=== PATIENT | female | born 1945 | race Caucasian/White ===

== ENCOUNTER 2017-05-15 11:45 | Emergency (ER) | payer MEDICARE ==
[~2017-05-15] VITALS: Ht 165.1 cm; Wt 80.0 kg
[~2017-05-15 11:45] MED LIST: ACET325 PO; AMLO5TAB96 PO; CALTTAB2 PO; ERGO50000 PO; FLON0.053; FLUTI110I INH; LISI40TA PO; SIMV20TA PO; VENTAER INH
[2017-05-15 11:50] VITALS: BP 184/78; PULSE 82; RESP 12; TEMP 98.9; O2SAT 98
[2017-05-15 12:16] VITALS: BP 159/68; PULSE 70; RESP 14; O2SAT 98
[2017-05-15] MEDS ORDERED: FLUT50SP EACH NARE (12:27)
[2017-05-15] MEDS ORDERED: CARB50TA3 PO (12:27)
[2017-05-15] MEDS ORDERED: VENTAER INH (12:27)
[2017-05-15] MEDS ORDERED: AMLO5TAB2 PO (12:27)
[2017-05-15] MEDS ORDERED: CALTCHW5 PO (12:27)
[2017-05-15] MEDS ORDERED: VITA500T4 PO (12:27)
[2017-05-15] MEDS ORDERED: MAPA325T PO (12:27)
[2017-05-15] MEDS ORDERED: FLUTI110I INH (12:27)
[2017-05-15] MEDS ORDERED: VITA1000 PO (12:27)
[2017-05-15] MEDS ORDERED: LISI40TA PO (12:27)
[2017-05-15] MEDS ORDERED: SIMV40TA PO (12:27)
[2017-05-15] MEDS ORDERED: ENTA1TAB PO (12:27)
--- NOTE | 2017-05-15 12:28 | PD ---
HPI Chief Complaint: GI Complaint Time Seen by Provider: 11:54 Travel History International Travel<30 days: No Contact w/Intl Traveler<30days: No Traveled to known affect area: No History of Present Illness HPI 71-year-old female with PMH of HTN, emphysema, breast CA, recent diagnosis of Parkinson's presents to the ED for evaluation of 3 week history of dizziness, nausea, loose bowel movements. The patient denies headaches, vision changes, chest pain, palpitations, shortness of breath, cough, abdominal pain, dysuria, urinary urgency, unilateral weakness, facial droop. She denies melena, hematochezia, BRBPR. She's never had a colonoscopy. She states that her nausea worsened after she began to take medications for Parkinson's. She is followed by [facility]. [facility] Past Medical History Arthritis: Yes Asthma: Yes Blood Disorders: No Cancer: Yes (RIGHT BREAST) Cardiovascular Problems: Yes Chemotherapy: No Diabetes: No Diminished Hearing: No Endocrine: No Glaucoma: No Genitourinary: No Hepatitis: No Hiatal Hernia: No Hypertension: Yes Immune Disorder: No Medical other: Yes (OSTEOARTHRITIS LEFT HIP) Musculoskeletal: Yes Neurologic: No Parkinson's Disease: Yes Reproductive: No Respiratory: Yes Radiation Therapy: No Thyroid Disease: No ?: Not Menopausal: Yes Past Surgical History Joint Replacement: Yes (LEFT TOTAL HIP) Mastectomy: Yes (BILATERAL) Oral Surgery: Yes (T & A) Pacemaker: No Tonsillectomy: Yes Social History Alcohol Use: No Tobacco Use: No Substance Use: No Allergies-Medications (Allergen,Severity, Reaction): Coded Allergies: No Known Allergies (Unverified Adverse Reaction, Unknown, 05/15/17) Uncoded Allergies: BP MED WITH DIURETIC (Adverse Reaction, Severe, LEG CRAMPS, 04/25/09) DAUGHTER THINKS IT MAY BE HCTZ Reported Meds & Prescriptions Reported Meds & Active Scripts Active Zyrtec (Cetirizine HCl) 10 Mg Capsule 10 Mg PO DAILY Zofran Odt (Ondansetron Odt) 4 Mg Tab 4 Mg SL Q12HR PRN Macrobid (Nitrofurantoin Monoh/Nitrofur Macro) 100 Mg Cap 100 Mg PO BID 7 Days Reported Vitamin D-1000 (Cholecalciferol) 1,000 Unit Tab 50,000 Units PO 2XWEEK Vitamin B-12 (Cyanocobalamin) 500 Mcg Tab 1,000 Mcg PO DAILY Ventolin Hfa 18 GM Inh (Albuterol Sulfate) 90 Mcg/Act Aer 2 Puff INH Q6H PRN Simvastatin 40 Mg Tab 40 Mg PO HS Lisinopril 40 Mg Tab 40 Mg PO DAILY Fluticasone Nasal [place] 50 Mcg/Act Naspr 50 Mcg EACH NARE BID 50 mcg/spray Flovent Hfa 12 GM Inh (Fluticasone Propionate) 110 Mcg/Act Inh 2 Puff INH BID Entacapone 200 Mg Tab 200 Mg PO TID administered concomitantly with each levodopa/carbidopa dose Carbidopa-Levodopa ER 50-200 Mg Tab 1 Tab PO TID Caltrate 600+D Chew (Calcium Carbonate-Vitamin D Chew) 600-400 Mg-Unit Chew 1 Tab PO DIRECTED Amlodipine (Amlodipine Besylate) 5 Mg Tab 5 Mg PO DAILY Mapap (Acetaminophen) 325 Mg Tab 325 Mg PO Q4-6H PRN Review of Systems Except as stated in HPI: all other systems reviewed are Neg Physical Exam Narrative GENERAL: Well-nourished, well-developed white female in no acute distress. SKIN: Focused skin assessment warm/dry. HEAD: Normocephalic. EYES: No scleral icterus. No injection or drainage. NECK: Supple, trachea midline. No JVD or lymphadenopathy. CARDIOVASCULAR: Regular rate and rhythm without murmurs, gallops, or rubs. RESPIRATORY: Breath sounds clear and equal bilaterally. No accessory muscle use. GASTROINTESTINAL: Abdomen soft, non-tender, nondistended. Active bowel sounds. MUSCULOSKELETAL: No cyanosis, or edema. NEUROLOGICAL: Awake and alert. Cranial nerves II through XII intact. Motor and sensory grossly within normal limits. Five out of 5 muscle strength in all muscle groups. Normal speech. BACK: Nontender without obvious deformity. No CVA tenderness. Data Data Last Documented VS Vital Signs Date Time Temp Pulse Resp B/P (MAP) Pulse Ox O2 Delivery O2 Flow Rate FiO2 05/15/17 14:54 (92) 05/15/17 13:42 65 18 67 18 76 18 05/15/17 12:28 Room Air 05/15/17 12:16 98 05/15/17 11:50 98.9 Orders Orders Electrocardiogram (05/15/17 12:22) Complete Blood Count With Diff (05/15/17 12:22) Comprehensive Metabolic Panel (05/15/17 12:22) Magnesium (Mg) (05/15/17 12:22) B-Type Natriuretic Peptide (05/15/17 12:22) Ckmb (Isoenzyme) Profile (05/15/17 12:22) Troponin I (05/15/17 12:22) Act Partial Throm Time (Ptt) (05/15/17 12:22) Prothrombin Time / Inr (Pt) (05/15/17 12:22) Urinalysis - C+S If Indicated (05/15/17 12:22) Chest, Single Ap (05/15/17 12:22) Ct Brain W/O Iv Contrast(Rout) (05/15/17 12:22) Ecg Monitoring (05/15/17 12:22) Iv Access Insert/Monitor (05/15/17 12:22) Oximetry (05/15/17 12:22) Sodium Chloride 0.9% Flush (Ns Flush) (05/15/17 12:30) Orthostatic Vital Signs (05/15/17 12:28) Urine Culture (05/15/17 12:05) Ceftriaxone Inj (Rocephin Inj) (05/15/17 14:00) Ondansetron Inj (Zofran Inj) (05/15/17 14:15) Ed Discharge Order (05/15/17 14:33) Labs Laboratory Tests Test 05/15/17 12:05 05/15/17 12:30 Urine Color DARK-YELLOW Urine Turbidity CLEAR Urine pH 6.5 Urine Specific [place] 1.018 Urine Protein TRACE mg/dL Urine Glucose (UA) NEG mg/dL Urine Ketones 10 mg/dL Urine Occult Blood NEG Urine Nitrite NEG Urine Bilirubin NEG Urine Urobilinogen LESS THAN 2.0 MG/DL Urine Leukocyte Esterase MOD Urine RBC 1 /hpf Urine WBC 9 /hpf Urine Squamous Epithelial Cells 1 /hpf Urine Bacteria RARE /hpf Urine Mucus FEW /lpf Microscopic Urinalysis Comment CULTURE INDICATED White Blood Count 7.5 TH/MM3 Red Blood Count 3.70 MIL/MM3 Hemoglobin 10.3 GM/DL Hematocrit 30.7 % Mean Corpuscular Volume 83.0 FL Mean Corpuscular Hemoglobin 27.8 PG Mean Corpuscular Hemoglobin Concent 33.5 % Red Cell Distribution Width 18.3 % Platelet Count 269 TH/MM3 Mean Platelet Volume 10.4 FL Neutrophils (%) (Auto) 76.3 % Lymphocytes (%) (Auto) 14.2 % Monocytes (%) (Auto) 7.9 % Eosinophils (%) (Auto) 0.9 % Basophils (%) (Auto) 0.7 % Neutrophils # (Auto) 5.7 TH/MM3 Lymphocytes # (Auto) 1.1 TH/MM3 Monocytes # (Auto) 0.6 TH/MM3 Eosinophils # (Auto) 0.1 TH/MM3 Basophils # (Auto) 0.1 TH/MM3 CBC Comment AUTO DIFF Differential Comment AUTO DIFF CONFIRMED Platelet Estimate NORMAL Platelet Morphology Comment ENLARGED Basophilic Stippling FAINT Ovalocytes 1+ Prothrombin Time 10.8 SEC Prothromb Time International Ratio 1.1 RATIO Activated Partial Thromboplast Time 24.6 SEC Blood Urea Nitrogen 15 MG/DL Creatinine 0.53 MG/DL Random Glucose 102 MG/DL Total Protein 7.2 GM/DL Albumin 3.9 GM/DL Calcium Level 8.5 MG/DL Magnesium Level 2.1 MG/DL Alkaline Phosphatase 73 U/L Aspartate Amino Transf (AST/SGOT) 8 U/L Alanine Aminotransferase (ALT/SGPT) LESS THAN 6 U/L Total Bilirubin 0.5 MG/DL Sodium Level 140 MEQ/L Potassium Level 3.3 MEQ/L Chloride Level 104 MEQ/L Carbon Dioxide Level 27.6 MEQ/L Anion Gap 8 MEQ/L Estimat Glomerular Filtration Rate 113 ML/MIN Total Creatine Kinase 67 U/L Troponin I LESS THAN 0.02 NG/ML B-Type Natriuretic Peptide 132 PG/ML MDM Medical Decision Making Medical Screen Exam Complete: Yes Emergency Medical Condition: Yes Differential Diagnosis Polypharmacy versus UTI versus PNA versus TIA versus ACS versus the hydration versus metabolic derangement versus orthostatic hypotension versus other Narrative Course 71-year-old female with PMH of HTN, emphysema, breast CA, recent diagnosis of Parkinson's presents to the ED for evaluation of 3 week history of dizziness, nausea, loose bowel movements. The patient denies headaches, vision changes, chest pain, palpitations, shortness of breath, cough, abdominal pain, dysuria, urinary urgency, unilateral weakness, facial droop. She denies melena, hematochezia, BRBPR. She's never had a colonoscopy. She states that her nausea worsened after she began to take medications for Parkinson's. She is followed by [facility]. Vitals reviewed. On exam the patient is nontoxic appearing. No focal neuro deficits. Chest CT revealed. Abdomen soft and nontender. Rectal exam guaiac negative. She was administered 4 mg of Zofran. CBC: WBC 7.5. Hemoglobin 10.3. Hematocrit 30.7. INR 1.1. CMP: Potassium 3.3. Urine 15. Creatinine 0.53. Cardiac enzymes negative 1. BNP 132. UA: Yellow, moderate leukocyte esterase, 9 wbc's, rare bacteria. Culture pending. CXR: No acute cardiopulmonary disease. Head CT: No acute intercranial process. I discussed also the workup with the patient and her family. I proposed that we treat for the UTI. Unsure about the chronicity of the patient's anemia. Record review reveals last visit many years ago. Patient was prescribed Macrobid 100 mg twice a day 7 days and a few doses of Zofran. He was provided a copy of her lab work to take to her primary care provider next visit. She is instructed to take every antibiotic pill until they are all gone. I recommend that she follow up with the neurologist regarding dental side effects for her medications. The patient's and her family indicated understanding of the instructions and are agreeable to the care plan. The patient is stable and discharged home. Diagnosis Primary Impression: Urinary tract infection Qualified Codes: N39.0 - Urinary tract infection, site not specified Additional Impression: Nausea alone Referrals: Neurologist Primary Care Physician Patient Instructions: General Instructions, Urinary Tract Infection in Women ( [place]) Additional Instructions: Rest, hydrate. Take all antibiotics until every pill is gone, even if your symptoms resolve. Follow up with your primary care provider regarding today's laboratory findings. Discuss your symptoms with your neurologist as they may be medication side effects. Return to the ED for any urgent or emergent medical condition. Med/Other Pt SpecificInfo: Prescription(s) given Scripts Cetirizine HCl (Zyrtec) 10 Mg Capsule 10 MG PO DAILY, #30 Prov: Phillip Virgen MD 05/15/17 Ondansetron Odt (Zofran Odt) 4 Mg Tab 4 MG SL Q12HR Y for Nausea/Vomiting, #4 TAB 0 Refills Prov: Phillip Virgen MD 05/15/17 Nitrofurantoin Monohydrate Macrocrystals (Macrobid) 100 Mg Cap 100 MG PO BID for Infection for 7 Days, #14 CAP 0 Refills Prov: Phillip Virgen MD 05/15/17 Disposition: 01 DISCHARGE HOME Condition: Stable Tamara Ocampo May 15, 2017 12:28
[2017-05-15] MEDS ORDERED: SODIUM CHLORIDE 0.9% FLUSH 10 ML FLUSH IVF PRN (12:30)
[2017-05-15 12:46] LABS: AUTOMATED NEUTROPHIL # 5.7 TH/MM3 (1.8-7.7); BASOPHIL # 0.1 TH/MM3 (0-0.2); BASOPHIL % 0.7 % (0.0-2.0); EOSINOPHIL # 0.1 TH/MM3 (0-0.4); EOSINOPHIL % 0.9 % (0.0-4.0); HEMATOCRIT 30.7 % (35.0-46.0); HEMOGLOBIN 10.3 GM/DL (11.6-15.3); LYMPH % 14.2 % (9.0-44.0); LYMPHOCYTE # 1.1 TH/MM3 (1.0-4.8); MEAN CORPUSCULAR HEMOGLOBIN 27.8 PG (27.0-34.0); MEAN CORPUSCULAR HGB CONC 33.5 % (32.0-36.0); MEAN PLATELET VOLUME 10.4 FL (7.0-11.0); MONO % 7.9 % (0.0-8.0); MONOCYTE # 0.6 TH/MM3 (0-0.9); NEUT % 76.3 % (16.0-70.0); PLATELET COUNT 269 TH/MM3 (150-450); RED CELL DISTRIBUTION WIDTH 18.3 % (11.6-17.2); WHITE BLOOD COUNT 7.5 TH/MM3 (4.0-11.0)
[2017-05-15 12:50] LABS: BACTERIA, URINE RARE /hpf; BILIRUBIN, URINE NEG (NEG); BLOOD, URINE NEG (NEG); GLUCOSE,URINE NEG (NEG); KETONE, URINE 10 mg/dL (NEG); MUCUS URINE FEW /lpf (OCC); NITRITE,URINE NEG (NEG); PH, URINE 6.5 (5.0-8.5); SQUAMOUS EPITHELIAL CELL URINE 1 /hpf (0-5); URINE COLOR DARK-YELLOW (YELLW/STRAW); URINE LEUKOCYTE ESTERASE MOD (NEG)
[2017-05-15 12:51] LABS: INTERNATIONAL NORMALIZED RATIO 1.1 RATIO; PROTHROMBIN TIME - PATIENT 10.8 SEC (9.8-11.6)
[2017-05-15 13:04] LABS: ALBUMIN 3.9 GM/DL (3.4-5.0); ALT (GPT) LESS THAN 6 U/L (10-53); AST (GOT) 8 U/L (15-37); BICARBONATE 27.6 MEQ/L (21.0-32.0); BLOOD UREA NITROGEN 15 MG/DL (7-18); CALCIUM 8.5 MG/DL (8.5-10.1); CHLORIDE 104 MEQ/L (98-107); CREATININE 0.53 MG/DL (0.50-1.00); GLOMERULAR FILTRATION RATE 113 ML/MIN (>89); GLUCOSE,RANDOM 102 MG/DL (74-106); MAGNESIUM 2.1 MG/DL (1.5-2.5); SODIUM (NA) 140 MEQ/L (136-145)
[2017-05-15 13:08] LABS: ALKALINE PHOSPHATASE 73 U/L (45-117); TOTAL BILIRUBIN ADULT 0.5 MG/DL (0.2-1.0); TOTAL PROTEIN 7.2 GM/DL (6.4-8.2); TROPONIN I LESS THAN 0.02 NG/ML (0.02-0.05)
--- NOTE | 2017-05-15 13:16 | RADRPT ---
EXAM DATE/TIME: 05/15/2017 12:40 [facility] COMPARISON: No previous studies available for comparison. INDICATIONS : Palpitations. MEDICAL HISTORY : Asthma. SURGICAL HISTORY : None. ENCOUNTER: Initial ACUITY: 1 day PAIN SCORE: 0/10 LOCATION: Bilateral chest FINDINGS: A single view of the chest demonstrates the lungs to be symmetrically aerated without evidence of mas s, infiltrate or effusion. The cardiomediastinal contours are unremarkable. Osseous structures are intact. CONCLUSION: 1. No acute cardiopulmonary disease. Jeremy Pierce MD on May 15, 2017 at 13:06 Board Certified Radiologist. This report was verified electronically.
[2017-05-15 13:29] LABS: OVALOCYTES 1+ (NORMAL)
[2017-05-15 13:42] VITALS: BP_SYST 133; BP_SYST 140; BP_SYST 148; BP_DIAS 65; RESP 18
[2017-05-15] MEDS ORDERED: cefTRIAXone INJ 1,000 MG in SODIUM CHLORIDE 0.9% INJ 100 ML IV ONE (14:00)
[2017-05-15] MEDS ORDERED: ZOFR4TAB3 SL (14:04)
[2017-05-15] MEDS ORDERED: MACR100C2 PO (14:04)
[2017-05-15] MEDS ORDERED: ONDANSETRON HCL 4 MG/2 ML VIAL IV PUSH ONE (14:15)
--- NOTE | 2017-05-15 14:31 | RADRPT ---
EXAM DATE/TIME: 05/15/2017 13:23 [facility] COMPARISON: No previous studies available for comparison. INDICATIONS : Dizziness, nausea, weakness. RADIATION DOSE: 56.36 CTDIvol (mGy) MEDICAL HISTORY : Cardiovascular disease. Parkinsons. Hypertension.Ca breast. SURGICAL HISTORY : Mastectomy, right. ENCOUNTER: Initial ACUITY: 3 weeks PAIN SCALE: 0/10 LOCATION: cranial TECHNIQUE: Multiple contiguous axial images were obtained of the head. Using automated exposure control and adj ustment of the mA and/or kV according to patient size, radiation dose was kept as low as reasonably a chievable to obtain optimal diagnostic quality images. DICOM format image data is available electro nically for review and comparison. FINDINGS: CEREBRUM: The ventricles are normal for age. Mild, symmetric benign basal ganglia calcification. No evidence of midline shift, mass lesion, hemorrhage or acute infarction. No extra-axial fluid collections are se en. POSTERIOR FOSSA: The cerebellum and brainstem are intact. The 4th ventricle is midline. The cerebellopontine angle i s unremarkable. EXTRACRANIAL: The visualized portion of the orbits is intact. SKULL: The calvaria is intact. No evidence of skull fracture. CONCLUSION: No acute intracranial process. Haroon Guevara MD on May 15, 2017 at 14:20 Board Certified Radiologist. This report was verified electronically.
[2017-05-15] MEDS ORDERED: CETI10CA3 PO (14:43)
--- NOTE | 2017-05-15 14:55 | PD ---
Data Data Last Documented VS Vital Signs Date Time Temp Pulse Resp B/P (MAP) Pulse Ox O2 Delivery O2 Flow Rate FiO2 05/15/17 14:54 (92) 05/15/17 13:42 65 18 67 18 76 18 05/15/17 12:28 Room Air 05/15/17 12:16 98 05/15/17 11:50 98.9 Vital Signs Date Time Temp Pulse Resp B/P (MAP) Pulse Ox O2 Delivery O2 Flow Rate FiO2 05/15/17 14:54 (92) 05/15/17 13:42 65 18 148/65 (92) 67 18 140/65 (90) 76 18 133/65 (87) 05/15/17 12:28 (98) Room Air 05/15/17 12:16 70 14 159/68 (98) 98 Room Air 05/15/17 11:50 98.9 82 12 184/78 (113) 98 Orders Orders Electrocardiogram (05/15/17 12:22) Complete Blood Count With Diff (05/15/17 12:22) Comprehensive Metabolic Panel (05/15/17 12:22) Magnesium (Mg) (05/15/17 12:22) B-Type Natriuretic Peptide (05/15/17 12:22) Ckmb (Isoenzyme) Profile (05/15/17 12:22) Troponin I (05/15/17 12:22) Act Partial Throm Time (Ptt) (05/15/17 12:22) Prothrombin Time / Inr (Pt) (05/15/17 12:22) Urinalysis - C+S If Indicated (05/15/17 12:22) Chest, Single Ap (05/15/17 12:22) Ct Brain W/O Iv Contrast(Rout) (05/15/17 12:22) Ecg Monitoring (05/15/17 12:22) Iv Access Insert/Monitor (05/15/17 12:22) Oximetry (05/15/17 12:22) Sodium Chloride 0.9% Flush (Ns Flush) (05/15/17 12:30) Orthostatic Vital Signs (05/15/17 12:28) Urine Culture (05/15/17 12:05) Ceftriaxone Inj (Rocephin Inj) (05/15/17 14:00) Ondansetron Inj (Zofran Inj) (05/15/17 14:15) Ed Discharge Order (05/15/17 14:33) Labs Laboratory Tests Test 05/15/17 12:05 05/15/17 12:30 Urine Color DARK-YELLOW Urine Turbidity CLEAR Urine pH 6.5 Urine Specific [place] 1.018 Urine Protein TRACE mg/dL Urine Glucose (UA) NEG mg/dL Urine Ketones 10 mg/dL Urine Occult Blood NEG Urine Nitrite NEG Urine Bilirubin NEG Urine Urobilinogen LESS THAN 2.0 MG/DL Urine Leukocyte Esterase MOD Urine RBC 1 /hpf Urine WBC 9 /hpf Urine Squamous Epithelial Cells 1 /hpf Urine Bacteria RARE /hpf Urine Mucus FEW /lpf Microscopic Urinalysis Comment CULTURE INDICATED White Blood Count 7.5 TH/MM3 Red Blood Count 3.70 MIL/MM3 Hemoglobin 10.3 GM/DL Hematocrit 30.7 % Mean Corpuscular Volume 83.0 FL Mean Corpuscular Hemoglobin 27.8 PG Mean Corpuscular Hemoglobin Concent 33.5 % Red Cell Distribution Width 18.3 % Platelet Count 269 TH/MM3 Mean Platelet Volume 10.4 FL Neutrophils (%) (Auto) 76.3 % Lymphocytes (%) (Auto) 14.2 % Monocytes (%) (Auto) 7.9 % Eosinophils (%) (Auto) 0.9 % Basophils (%) (Auto) 0.7 % Neutrophils # (Auto) 5.7 TH/MM3 Lymphocytes # (Auto) 1.1 TH/MM3 Monocytes # (Auto) 0.6 TH/MM3 Eosinophils # (Auto) 0.1 TH/MM3 Basophils # (Auto) 0.1 TH/MM3 CBC Comment AUTO DIFF Differential Comment AUTO DIFF CONFIRMED Platelet Estimate NORMAL Platelet Morphology Comment ENLARGED Basophilic Stippling FAINT Ovalocytes 1+ Prothrombin Time 10.8 SEC Prothromb Time International Ratio 1.1 RATIO Activated Partial Thromboplast Time 24.6 SEC Blood Urea Nitrogen 15 MG/DL Creatinine 0.53 MG/DL Random Glucose 102 MG/DL Total Protein 7.2 GM/DL Albumin 3.9 GM/DL Calcium Level 8.5 MG/DL Magnesium Level 2.1 MG/DL Alkaline Phosphatase 73 U/L Aspartate Amino Transf (AST/SGOT) 8 U/L Alanine Aminotransferase (ALT/SGPT) LESS THAN 6 U/L Total Bilirubin 0.5 MG/DL Sodium Level 140 MEQ/L Potassium Level 3.3 MEQ/L Chloride Level 104 MEQ/L Carbon Dioxide Level 27.6 MEQ/L Anion Gap 8 MEQ/L Estimat Glomerular Filtration Rate 113 ML/MIN Total Creatine Kinase 67 U/L Troponin I LESS THAN 0.02 NG/ML B-Type Natriuretic Peptide 132 PG/ML [facility] Medical Record Reviewed: Yes Supervised Visit with DAVID: Yes Narrative Course Please refer to midlevel note. I interviewed patient and family at bedside. Exam performed by me. Pt with UTI and some element of post-nasal drip. Scripts as below. Return precautions discussed. Diagnosis Primary Impression: Urinary tract infection Additional Impression: Nausea alone Referrals: Neurologist Primary Care Physician Patient Instructions: General Instructions, Urinary Tract Infection in Women ( [place]) Departure Forms: Tests/Procedures Additional Instruction: Rest, hydrate. Take all antibiotics until every pill is gone, even if your symptoms resolve. Follow up with your primary care provider regarding today's laboratory findings. Discuss your symptoms with your neurologist as they may be medication side effects. Return to the ED for any urgent or emergent medical condition. Scripts Cetirizine HCl (Zyrtec) 10 Mg Capsule 10 MG PO DAILY, #30 Prov: Phillip Virgen MD 05/15/17 Ondansetron Odt (Zofran Odt) 4 Mg Tab 4 MG SL Q12HR Y for Nausea/Vomiting, #4 TAB 0 Refills Prov: Phillip Virgen MD 05/15/17 Nitrofurantoin Monohydrate Macrocrystals (Macrobid) 100 Mg Cap 100 MG PO BID for Infection for 7 Days, #14 CAP 0 Refills Prov: Phillip Virgen MD 05/15/17 Disposition: 01 DISCHARGE HOME Condition: Stable Phillip Virgen MD May 15, 2017 14:55
--- NOTE | 2017-05-18 10:29 | EKG ---
Date Performed: 05/15/2017 Time Performed: 12:50:56 PTAGE: 71 years EKG: SINUS BRADYCARDIA WITH MARKED SINUS ARRHYTHMIA RIGHT BUNDLE BRANCH BLOCK ABNORMAL ECG NO PREVIOUS TRACING DOCTOR: Michelle Kapoor Interpretating Date/Time 05/18/2017 10:28:05
== END 2017-05-15 15:12 | disposition home or self-care (01) ==
LOC: NEPE 11:45
DX: N39.0 Urinary tract infection, site not specified (principal); B96.89 Other specified bacterial agents as the cause of diseases classified elsewhere; G20 Parkinson's disease; I10 Essential (primary) hypertension; R00.1 Bradycardia, unspecified; Z85.3 Personal history of malignant neoplasm of breast
CPT/HCPCS: 70450; 71010; 80053; 81001; 82550; 83735; 83880; 84484; 85025; 85610; 85730; 87086; 93005; 96365; 96375; 99285; J0696; J2405